=== PATIENT | male | born 1945 | race Caucasian/White ===

== ENCOUNTER 2020-01-25 18:58 | Emergency (ER) | payer OTHER, SELFPAY ==
[2020-01-25 19:03] VITALS: BP 157/85; PULSE 66; RESP 18; TEMP 36.8; O2SAT 94
--- NOTE | 2020-01-25 19:21 | W.ED.GENAD ---
Discharge Plan Disposition Patient Disposition: HOME Condition: Good Discharge Details Chief Complaint: Orthopedic Clinical Impression: Biceps tendonitis Primary Care Provider: [facility] ED Provider: Silvina Kulkarni Home Meds and New Rx's Prescriptions: Continued cyanocobalamin (vitamin B-12) [Vitamin B-12] 1,000 MCG tablet 1 tab PO DAILY RF: 0 aspirin [Aspir-Low] 81 MG tablet,delayed release (DR/EC) 81 mg PO DAILY RF: 0 citalopram 20 MG tablet 20 mg PO .QHS RF: 0 bupropion HCl [Wellbutrin] 75 MG tablet 75 mg PO BID RF: 0 hydrochlorothiazide 25 MG tablet 25 mg PO DAILY RF: 0 cholecalciferol (vitamin D3) 1,000 UNITS tablet 1 tab PO DAILY RF: 0 omeprazole 20 MG capsule,delayed release(DR/EC) 20 mg PO DAILY RF: 0 rosuvastatin [Crestor] 20 MG tablet 20 mg PO .QHS RF: 0 Fish Oil 500 MG capsule 1 cap PO DAILY RF: 0 prednisone 20 MG tablet 20 mg PO DAILY Qty: 5 RF: 0 tramadol 50 MG tablet 50 mg PO QID PRN (Reason: Pain) Qty: 20 RF: 0 trazodone 50 mg Tablet 100 mg PO QHS RF: 0 acetaminophen 500 mg Tablet 1,000 mg PO QID PRNRF: 0 naproxen sodium [Aleve] 220 MG capsule 220 mg PO PRNRF: 0 oxycodone-acetaminophen 1 TAB tablet 0 ea PO TID PRNQty: 12 RF: 0 Discharge Instructions Instructions: Tendinitis (ED) Additional Instructions: Encourage rest, ice, elevation. Tylenol and/or ibuprofen as needed for discomfort. Please continue with sling until cleared by orthopedics. Please take your arm out of the sling multiple times a day however to perform passive range of motion activities as discussed. Please call orthopedics Tuesday to schedule follow-up appointment, number listed below. If you develop fever/chills, increased pain or other new/worsening symptom please seek care urgently once again. Referrals: Dontrell Skaggs MD [ [facility] STAFF PHYSICIAN] - Discharge Data Discharge Date/Time-TO BE ENTERED AT DEPARTURE: 01/25/20 20:35 Medical Decision Making Patient is a pleasant [id number] 75-year-old male presenting today with chief complaint of right elbow pain. He reports that he began approximately 3 hours prior to arrival and was trying to lift a plow. States that while lifting he suddenly felt a pop and had sudden onset of pain and indicates the biceps tendon insertions area of maximal discomfort. He reports that since then, he has been having some discomfort that radiates down the forearm particularly with supination. He denies any numbness or tingling. He states he took Tylenol this morning for arthritis pain does not take anything for his discomfort as of yet. Denies any previous surgeries or injuries to this area. Denies other injury the time of the incident. On exam, patient is resting comfortably. He has full range of motion of the elbow but does have discomfort particularly with flexion. He has a normal hook test, no Zohaib deformity. Sensation is intact in his hand, he has 5-5 collision estimator strength and full range of motion of his wrist. He has no pain with pronation but has difficulty with supination secondary to discomfort. Pain does to be maximal over the bicep tendon insertion and with his history, I am concerned for potential partial rupture but this does not seem to be a complete rupture. FINDINGS: Bones/joints: No acute fracture or subluxation. Minor medial and lateral degenerative changes, distal humerus. Soft tissues: No significant joint effusion. A benign-appearing tiny triceps enthesophyte. IMPRESSION: No acute bony pathology Discussed this findings with the patient. Advised that again, I am concerned for partial rupture of the biceps tendon given his area of discomfort in his sensation of the pop. However, I do not see any evidence for full rupture, hook test is normal. He is neurovascularly intact. We will place him in a sling to help with discomfort. However, I did advise him on range of motion exercises that he should be performing at least 5-6 times daily. I did encourage rest, ice, elevation. Tylenol and/or ibuprofen as needed for discomfort. Advise follow-up with orthopedics. He will call on Tuesday to schedule follow-up appointment. All of his questions and concerns were addressed and he is in agreement this plan. HPI General Mode of arrival: ambulatory. Date/Time Provider Initiated Documentation: 01/25/20 19:18. Information obtained by: patient and RN notes reviewed. History of Present Illness 75 year old M presents to the emergency department with the chief complaint of right elbow pain, described as moderate, Quality is described as aching, and is localized to the right and upper extremity. Patient reports no radiation. Patient started experiencing this hour(s) and it has been constant. Immobilization improves symptom(s), Movement worsens symptoms . Patient notes no other symptoms.. Patient did receive the following treatments prior to arrival, none Related Data Home Medications Medication Instructions Recorded Confirmed Fish Oil 1 cap PO DAILY 12/19/14 01/25/20 aspirin [Aspir-Low] 81 mg PO DAILY 12/19/14 01/25/20 bupropion HCl [Wellbutrin] 75 mg PO BID 12/19/14 12/19/14 cholecalciferol (vitamin D3) 1 tab PO DAILY 12/19/14 01/25/20 citalopram 20 mg PO .QHS 12/19/14 01/25/20 cyanocobalamin (vitamin B-12) 1 tab PO DAILY 12/19/14 01/25/20 [Vitamin B-12] hydrochlorothiazide 25 mg PO DAILY 12/19/14 01/25/20 omeprazole 20 mg PO DAILY 12/19/14 01/25/20 prednisone 20 mg PO DAILY #5 tab 12/19/14 01/25/20 rosuvastatin [Crestor] 20 mg PO .QHS 12/19/14 01/25/20 tramadol 50 mg PO QID PRN #20 tab 12/19/14 01/25/20 naproxen sodium [Aleve] 220 mg PO PRN 07/07/16 oxycodone-acetaminophen 0 ea PO TID PRN #12 tab 07/07/16 acetaminophen 1,000 mg PO QID PRN 01/25/20 01/25/20 trazodone 100 mg PO QHS 01/25/20 01/25/20 Previous Rx's Medication Instructions Recorded prednisone 20 mg PO DAILY #5 tab 12/19/14 tramadol 50 mg PO QID PRN #20 tab 12/19/14 oxycodone-acetaminophen 0 ea PO TID PRN #12 tab 07/07/16 Allergies Allergy/AdvReac Type Severity Reaction Status Date / Time dust mites Allergy Intermediate Uncoded 07/07/16 09:29 General Stated Complaint: Orthopedic ALBIN: 3 Review of Systems Constitutional Constitutional: Reports as per HPI, Denies chills, Denies fever(s), Denies headache(s) and Denies weakness ENT Ears, Nose, Mouth, and Throat: Denies headache(s) Cardiovascular Cardiovascular: Reports as per HPI Respiratory Respiratory: Reports as per HPI and Denies cough Musculoskeletal Musculoskeletal: Reports as per HPI and Denies tingling Integumentary/Breasts Skin/Breast: Reports as per HPI, Denies rash and Denies wounds Neurologic Neurologic: Reports as per HPI, Denies headache(s), Denies tingling, Denies paresthesias and Denies weakness [facility] Social History Smoking/Tobacco Use Status: Former Tobacco Use Alcohol Intake: never Drug use: Never Substance use type: does not use Do you feel safe at home: Yes Do you feel safe in your relationship?: Yes Exam Const General: cooperative, healthy appearing, comfortable, no acute distress, well developed and well groomed Nutritional Appearance: well nourished and overweight Orientation: alert and awake Resp Effort & Inspection: normal respiratory effort, able to speak in complete sentences and no respiratory distress Cardio Rate: regular rate Rhythm: regular rhythm Skin General skin exam: no rashes or lesions noted Lesions: no lesions Rashes: no rashes Trauma: no lacerations or abrasions Neuro General: patient alert and patient awake Cognition: normal cognition Speech: speech normal Gait: normal gait Motor: muscle tone normal throughout Sensory Exam: no sensory deficits noted Extrem Right upper extremity: normal to inspection, full ROM, normal capillary refill, no joint enlargement, shoulder/upper arm Details: normal to inspection, axillary nerve sensory function normal and normal ROM; no tenderness and no swelling, elbow/forearm Details: normal to inspection, tenderness (distal biceps insertion, hook test intact), normal ROM and distal pulses intact; no swelling, no unusual warmth, no abrasions, no lacerations, no ecchymosis, no crepitus and no deformity, wrist Details: normal to inspection, normal ROM, normal vascular exam and radial pulse present; no tenderness and no swelling and hand Details: normal to inspection, normal capillary refill, vascular exam Details: radial pulse present and normal capillary refill and normal ROM of fingers; no tenderness, no unusual warmth and no swelling Psych Appearance: grossly normal and well kempt Mental Status: mental status grossly normal Speech and Movement: speech and movement normal Course Vital Signs Vital signs: Vital Signs Temperature 36.8 C 01/25/20 19:03 Pulse 66 01/25/20 19:03 Respiratory Rate 18 01/25/20 19:03 Blood Pressure 157/85 H 01/25/20 19:03 Pulse Oximetry 94 L 01/25/20 19:03 Temperature 36.8 C 01/25/20 19:03 Temperature Source Skin 01/25/20 19:03 Pulse 66 01/25/20 19:03 Respiratory Rate 18 01/25/20 19:03 Respiratory Effort Non-Labored 01/25/20 19:05 Blood Pressure 157/85 H 01/25/20 19:03 Blood Pressure Position Sitting 01/25/20 19:03 Pulse Oximetry 94 L 01/25/20 19:03 Oxygen Delivery Method Room Air 01/25/20 19:03 Oxygen Flow Rate 0 01/25/20 19:03 Pain Level 7 01/25/20 19:05
[2020-01-25] MEDS: Ibuprofen 600 MG TAB PO (19:34)
--- NOTE | 2020-01-25 19:47 | DI.RAD_ITS ---
EXAM: XR ELBOW RT COMPLETE CLINICAL HISTORY: pain over biceps tendon. TECHNIQUE: 2D digital imaging was performed. COMPARISON: No exams were available for comparison FINDINGS: BONES: No acute fracture is present. No bony destructive lesion is seen. JOINTS: The elbow is normally aligned. No joint effusion is seen. There are mild degenerative change s. SOFT TISSUE: Normal. IMPRESSION: Mild degenerative changes. No acute abnormality. DATA REPOSITORY: RADIATION DOSE DELIVERED:
--- NOTE | 2020-01-25 19:52 | DI.VRAD_ITS ---
PROCEDURE INFORMATION: Exam: XR Right Elbow Exam date and time: 01/25/2020 19:44 Age: 75 years old Clinical indication: Injury or trauma; Injury history: Lifting something heavy, felt a pop; Initial encounter; Sprain or strain; Elbow; Right; Injury date: 01/25/20 TECHNIQUE: Imaging protocol: XR Right elbow. Views: 3 or more views. COMPARISON: CR RIGHT ELBOW COMPLETE 07/07/2016 10:09 FINDINGS: Bones/joints: No acute fracture or subluxation. Minor medial and lateral degenerative changes, distal humerus. Soft tissues: No significant joint effusion. A benign-appearing tiny triceps enthesophyte. IMPRESSION: No acute bony pathology. Dictated and Authenticated by: Lucinda Gonzalez MD. Ordering:SARAHI Cool MD
[2020-01-25 20:37] VITALS: BP 145/72; PULSE 69; RESP 18; TEMP 36.4; O2SAT 96
== END 2020-01-25 20:35 | disposition home or self-care (01) ==
PROVIDERS: Emergency Provider Physician Assistant
DX: M75.21 Bicipital tendinitis, right shoulder (principal); X50.0XXA Overexertion from strenuous movement or load, initial encounter
CPT/HCPCS: 99283; 73080; L3650

== ENCOUNTER 2022-09-14 09:00 | Emergency (ER) | payer OTHER, SELFPAY ==
[2022-09-14 09:05] VITALS: BP 167/82; PULSE 85; RESP 18; O2SAT 95
[2022-09-14 09:07] VITALS: TEMP 37.1
--- NOTE | 2022-09-14 09:14 | ED.GENADUL_ITS ---
Discharge Plan Disposition Patient Disposition: Home Condition: Stable Discharge Details Clinical Impression: Corneal abrasion, left Primary Care Provider: Norma Servin ED Provider: Barb Patiño Home Meds and New Rx's Prescriptions: Continued cyanocobalamin (vitamin B-12) [Vitamin B-12] 1,000 MCG tablet 1 tab PO DAILY aspirin [Aspir-Low] 81 MG tablet,delayed release (DR/EC) 81 mg PO DAILY citalopram 20 MG tablet 20 mg PO .QHS bupropion HCl [Wellbutrin] 75 MG tablet 75 mg PO BID Patient Comments: not sure of dose. hydrochlorothiazide 25 MG tablet 25 mg PO DAILY cholecalciferol (vitamin D3) 1,000 UNITS tablet 1 tab PO DAILY omeprazole 20 MG capsule,delayed release(DR/EC) 20 mg PO DAILY rosuvastatin [Crestor] 20 MG tablet 20 mg PO .QHS Fish Oil 500 MG capsule 1 cap PO DAILY prednisone 20 MG tablet 20 mg PO DAILY Qty: 5 0RF tramadol 50 MG tablet 50 mg PO QID PRN (Reason: Pain) Qty: 20 0RF trazodone 50 mg Tablet 100 mg PO QHS acetaminophen 500 mg Tablet 1,000 mg PO QID PRN naproxen sodium [Aleve] 220 MG capsule 220 mg PO PRN oxycodone-acetaminophen 1 TAB tablet 0 ea PO TID PRNQty: 12 0RF Discharge Instructions Instructions: Corneal Abrasion (ED) Additional Instructions: You have a corneal abrasion on your left eye on exam today. This is a scratch on the clear front covering of your eye. You are being sent home with antibiotic drops to use as directed. Apply 2 drops to your left eye every 4 hours for 2 days then 2 drops every 6 hours for 5 days. You have been placed on care management's list for a follow-up appointment with [facility] eye care this week for reevaluation. You can also call [facility] eye care today or tomorrow to schedule or confirm this appointment. Return immediately to the emergency department if you develop any worsening or new concerning symptoms. Referrals: [facility] [Outside] Discharge Data Discharge Physician: Barb Patiño Medical Decision Making 77-year-old male with history of hypertension, hyperlipidemia, GERD, depression and PTSD presents for left eye injury after a plastic pipe he was holding at home slipped and hit his left eye yesterday. Patient appears nontoxic. Visual acuity 20/50 OD, 20/50 OS and 20/40 OU. His left eye has conjunctival injection. PERRLA. EOMI. Limited funduscopic exam without dilation but no obvious hemorrhage. Fluorescein staining of eye reveal 2 [id number] corneal abrasions, 1 to 2 mm in size at 4:00. No obvious foreign body noted with inspection including eyelid eversion. Patient given ofloxacin drops to go. He was placed on [facility] eye care list for follow-up in the next 1 to 2 weeks. Usual and customary return precautions given prior to discharge. HPI General Mode of arrival: ambulatory . Date/Time Provider Initiated Documentation: 09/14/22 09:01 . Limitations to Documentation: no limitations . Information obtained by: patient . HPI Narrative: Pt is a 77yo M with a history of hypertension, hyperlipidemia, GERD, depression and PTSD who presents for injury to his left eye yesterday now presents with irritation and blurry vision. Patient states he was working at home when the plastic pipe he was holding in his hand slipped and hit his left eye. He states he recently felt some discomfort but not initially blurry vision. He states since then he has had some irritation and blurry vision. He does not wear contacts. [facility] and his tetanus is up-to-date within the last 10 years. He denies any headaches or dizziness. He denies any known foreign body and states the plastic pipe still intact after injury. Related Data Home Medications Medication Instructions Recorded Confirmed aspirin 81 mg tablet,delayed 81 mg PO DAILY 12/19/14 01/25/20 release (Aspir-Low) bupropion HCl 75 mg tablet 75 mg PO BID 12/19/14 12/19/14 (Wellbutrin) cholecalciferol (vitamin D3) 25 1 tab PO DAILY 12/19/14 01/25/20 mcg (1,000 unit) tablet citalopram 20 mg tablet 20 mg PO .QHS 12/19/14 01/25/20 cyanocobalamin (vitamin B-12) 1 tab PO DAILY 12/19/14 01/25/20 1,000 mcg tablet (Vitamin B-12) hydrochlorothiazide 25 mg tablet 25 mg PO DAILY 07/09/15 08/14/20 omega-3 fatty acids 500 mg capsule 1 cap PO DAILY 12/19/14 01/25/20 (Fish Oil) omeprazole 20 mg capsule,delayed 20 mg PO DAILY 12/19/14 01/25/20 release prednisone 20 mg tablet 20 mg PO DAILY #5 tabs 12/19/14 01/25/20 rosuvastatin 20 mg tablet (Crestor) 20 mg PO .QHS 12/19/14 01/25/20 tramadol 50 mg tablet 50 mg PO QID PRN Pain #20 tabs 12/19/14 01/25/20 naproxen sodium 220 mg capsule 220 mg PO PRN 07/07/16 (Aleve) oxycodone-acetaminophen 5 mg-325 0 ea PO TID PRN #12 tabs 07/07/16 mg tablet acetaminophen 500 mg tablet 1,000 mg PO QID PRN 01/25/20 01/25/20 trazodone 50 mg tablet 100 mg PO QHS 01/25/20 01/25/20 Previous Rx's Medication Instructions Recorded prednisone 20 mg tablet 20 mg PO DAILY #5 tabs 12/19/14 tramadol 50 mg tablet 50 mg PO QID PRN Pain #20 tabs 12/19/14 oxycodone-acetaminophen 5 mg-325 0 ea PO TID PRN #12 tabs 07/07/16 mg tablet Allergies Allergy/AdvReac Type Severity Reaction Status Date / Time dust mites Allergy Intermediate Uncoded 07/07/16 09:29 General Stated Complaint: EyeProblem ALBIN: 4 Review of Systems All systems reviewed & are unremarkable except as noted in HPI and below Constitutional Constitutional: Reports as per HPI, Denies chills and Denies fever(s) Eyes Eyes: Reports blurry vision, Denies eye discharge, Reports irritation and Denies photophobia ENT Ears, Nose, Mouth, and Throat: Denies dizziness, Denies sore throat and Denies throat swelling Cardiovascular Cardiovascular: Denies chest pain and Denies dyspnea Respiratory Respiratory: Denies cough and Denies dyspnea Gastrointestinal Gastrointestinal: Denies abdominal pain, Denies diarrhea and Denies vomiting Genitourinary Genitourinary: Denies hematuria and Denies dysuria Musculoskeletal Musculoskeletal: Denies back pain and Denies numbness Integumentary/Breasts Skin/Breast: Denies lesions and Denies rash Neurologic Neurologic: Denies dizziness, Denies localized weakness and Denies numbness Allergic/Immunologic Allergic/Immunologic: Denies throat swelling PFSH All Active Problems (Updated 09/14/22 @ 10:27 by Barb Patiño DO) Corneal abrasion, left (Acute) Medical History (Updated 09/14/22 @ 10:27 by Barb Patiño DO) GERD (gastroesophageal reflux disease) HTN (hypertension) Hx of hyperlipidemia PTSD (post-traumatic stress disorder) Surgical History (Updated 09/14/22 @ 10:27 by Barb Patiño DO) History of tonsillectomy Social History Smoking/Tobacco Use Status: Former Tobacco Use Smoking risk assessment performed?: Yes Alcohol Intake: never Drug use: Never Substance use type: does not use Do you feel safe at home: Yes Do you feel safe in your relationship?: Yes Exam Const General: cooperative, healthy appearing and no acute distress Orientation: alert, awake and oriented x3 HENMT Head: normal to inspection Mouth: oral mucosae normal Eyes General: appearance normal, both eyes and all related structures Conjunctivae: conjunctival abnormality left conjunctival injection diffuse; without discharge Cornea: corneas abnormal on the left abrasion at the following clock position (4 o'clock); with no foreign body noted Pupils: PERRL EOM: EOM intact bilaterally Eyes/upper lids images: 1. Two side by side corneal abrasions at 4 'o'clock position, 1-2mm in size. Neck Neck: normal visual inspection Resp Effort & Inspection: normal respiratory effort and able to speak in complete sentences Cardio Rate: regular rate Skin General skin exam: no rashes or lesions noted Neuro General: patient alert, patient awake and patient oriented x3 Motor: muscle tone normal throughout Extrem General: normal to inspection and full ROM Psych Appearance: grossly normal Affect: normal affect Course Vital Signs Vital signs: Vital Signs Pulse 85 09/14/22 09:05 Respiratory Rate 18 09/14/22 09:05 Blood Pressure 167/82 H 09/14/22 09:05 Pulse Oximetry 95 09/14/22 09:05 Temperature 98.7 F 09/14/22 09:07 Temperature Source Oral 09/14/22 09:07 Pulse 85 09/14/22 09:05 Respiratory Rate 18 09/14/22 09:05 Respiratory Effort Normal, Non-Labored 09/14/22 09:06 Blood Pressure 167/82 H 09/14/22 09:05 Pulse Oximetry 95 09/14/22 09:05 Oxygen Delivery Method Room Air 09/14/22 09:05 Oxygen Flow Rate 0 09/14/22 09:05
[2022-09-14] MEDS: Fluorescein STRIPS 100/BOX 1 MG (09:54)
[2022-09-14] MEDS: Tetracaine 0.5% 4 ML BTL (09:54)
== END 2022-09-14 09:57 | disposition home or self-care (01) ==
PROVIDERS: Emergency Provider Physician Assistant; PCP Nurse Practitioner Family
DX: S05.02XA Injury of conjunctiva and corneal abrasion without foreign body, left eye, initial encounter (principal); I10 Essential (primary) hypertension; Z79.82 Long term (current) use of aspirin; W22.8XXA Striking against or struck by other objects, initial encounter; Y92.009 Unspecified place in unspecified non-institutional (private) residence as the place of occurrence of the external cause
CPT/HCPCS: 99283; 99284

== ENCOUNTER 2022-12-23 12:43 | Outpatient (CLI) | payer SELFPAY ==
--- NOTE | 2022-12-23 12:30 | RT.EKG_ITS ---
APPROVED REPORT Exam: Resting ECG Reason for Exam: Tingling in arms Patient Location: O HR:62 bpm ECG Measurements Heart Rate 62 AXIS MS 165 P 8 QRSd 95 QRS -27 QT 455 T -27 QTc 462 Conclusion Sinus rhythm...normal P axis, V-rate 50- 99 Borderline left axis deviation...QRS axis (-15,-29) Borderline T abnormalities, inferior leads...T flat/neg, II III aVF
== END 2022-12-23 12:44 | disposition home or self-care (01) ==
LOC: DI.CM 12:44
PROVIDERS: PCP Nurse Practitioner Family; Visit Provider Nurse Practitioner Family
DX: R07.89 Other chest pain (principal); R20.2 Paresthesia of skin
CPT/HCPCS: 93010

== ENCOUNTER 2022-12-23 14:43 | Outpatient (REF) | payer SELFPAY ==
[2022-12-23 20:49] LABS: HGB 17.2 g/dL (13.5-17.5); MCH 27.4 pg (27.0-33.0); MCHC 33.7 % (32.0-36.0); MCV 81 fL (80-95); MPV 9.6 fL (8.0-11.0); Platelet Count 213 10^3/uL (130-400); RBC 6.28 10^6/uL (4.36-5.78); RDW 14.1 % (11.8-14.1); RDW-SD 41.1 fL
[2022-12-23 21:00] LABS: Anion Gap 8.4 mmol/L (3-11); BUN 15 mg/dL (7-18); CO2 31.6 mmol/L (21.0-32.0); CREATININE 1.2 mg/dL (0.70-1.30); Calcium 8.9 mg/dL (8.5-10.1); Chloride 103 mmol/L (98-107); Estimated GFR 63.07 (mL/min/1.73m2); Glucose 81 mg/dL (74-106); Potassium 3.7 mmol/L (3.5-5.1); Sodium 143 mmol/L (136-145)
== END 2022-12-23 14:44 | disposition home or self-care (01) ==
LOC: LBN 14:43
PROVIDERS: PCP Nurse Practitioner Family; Visit Provider Nurse Practitioner Family
DX: R42 Dizziness and giddiness (principal); R29.6 Repeated falls; I10 Essential (primary) hypertension
CPT/HCPCS: 80048; 85027

== ENCOUNTER 2023-05-02 14:07 | Outpatient (CLI) | payer OTHER, SELFPAY ==
--- NOTE | 2023-05-02 13:15 | DI.RAD_ITS ---
Exam(s) XR KNEE LT 2V AP,LAT EXAM: XR KNEE LT 2V AP,LAT CLINICAL HISTORY: eval L knee pain, complement previous x-rays. TECHNIQUE: 2D digital imaging was performed. Three views. COMPARISON: CR RIGHT KNEE COMPLETE from 12/19/2014 CR KNEE 2 VIEWS (ROUTINE) from 11/24/2022 FINDINGS: BONES: No acute fracture is present. No bony destructive lesion is seen. Patellar Enthesophytes. JOINTS: Mild narrowing of the medial femoral tibial joint space. Mild periarticular spurring at the patellofemoral and femoral tibial joints. SOFT TISSUE: Normal. IMPRESSION: Mild degenerative changes. DATA REPOSITORY: RADIATION DOSE DELIVERED:
== END 2023-05-02 14:08 | disposition home or self-care (01) ==
LOC: DIORS 14:07
PROVIDERS: PCP Nurse Practitioner Family; Visit Provider Student in an Organized Health Care Education/Training Program
DX: M25.562 Pain in left knee (principal)
CPT/HCPCS: 73560

== ENCOUNTER 2024-03-07 16:08 | Outpatient (CLI) | payer OTHER, SELFPAY ==
--- NOTE | 2024-03-07 14:36 | DI.RAD_ITS ---
Exam(s) XR KNEE LT 4V AP,LAT,DARCIE,PAT EXAM: XR KNEE LT 4V AP,LAT,DARCIE,PAT CLINICAL HISTORY: L knee pain. TECHNIQUE: 2D digital imaging was performed. COMPARISON: CR KNEE 2 VIEWS (ROUTINE) from 11/21/2023 FINDINGS: Four views. No evidence of fracture but there is a significant size joint effusion signifying internal derangemen t. There is moderate-advanced narrowing of the medial compartment evident on the weight-bearing view. N o significant narrowing of the lateral compartment. No osteochondral defects evident. No marginal o steophytes. There is no significant narrowing of the patellofemoral compartment seen on the merchant 's view. IMPRESSION: Moderate-advanced degenerative narrowing of the medial compartment seen on the weight-bearing view. Joint effusion also noted. This may signify presence of an internal derangement in addition to the d egenerative changes. If clinically indicated can be further studied with MRI. DATA REPOSITORY: RADIATION DOSE DELIVERED:
== END 2024-03-07 16:09 | disposition home or self-care (01) ==
LOC: DIORS 16:08
PROVIDERS: PCP Nurse Practitioner Family; Visit Provider Physician Assistant
DX: M17.12 Unilateral primary osteoarthritis, left knee (principal)
CPT/HCPCS: 73564

== ENCOUNTER 2024-07-02 03:18 | Outpatient (CLI) | payer OTHER, SELFPAY ==
[2024-07-02 12:43] LABS: HCT 55.3 % (40.0-50.0); HGB 18.1 g/dL (13.5-17.5); MCH 26.9 pg (27.0-33.0); MCHC 32.7 % (32.0-36.0); MCV 82 fL (80-95); MPV 9.1 fL (8.0-11.0); Platelet Count 215 10^3/uL (130-400); RDW 14.6 % (11.8-14.1); RDW-SD 41.3 fL
[2024-07-02 12:49] LABS: Anion Gap 6.2 mmol/L (3-11); BUN 15 mg/dL (7-18); CO2 34.8 mmol/L (21.0-32.0); CREATININE 1.4 mg/dL (0.70-1.30); Calcium 9.2 mg/dL (8.5-10.1); Chloride 102 mmol/L (98-107); Estimated GFR 51.77 (mL/min/1.73m2); Glucose 92 mg/dL (74-106); Potassium 3.4 mmol/L (3.5-5.1); Sodium 143 mmol/L (136-145)
[2024-07-02 13:04] LABS: RBC 6.74 10^6/uL (4.36-5.78)
== END 2024-07-02 03:19 | disposition home or self-care (01) ==
LOC: LBO 03:18
PROVIDERS: PCP Nurse Practitioner Family; Visit Provider Student in an Organized Health Care Education/Training Program
DX: M17.12 Unilateral primary osteoarthritis, left knee (principal); Z01.818 Encounter for other preprocedural examination
CPT/HCPCS: 36415; 80048; 85027

== ENCOUNTER 2024-07-02 13:41 | Outpatient (CLI) | payer OTHER, SELFPAY ==
--- NOTE | 2024-07-02 11:15 | DI.RAD_ITS ---
Exam(s) XR KNEE LT 1V XR STANDING ALIGNMENT EXAM: XR STANDING ALIGNMENT CLINICAL HISTORY: PRE OP L TKA. TECHNIQUE: 2D digital imaging was performed. Standing AP views were performed from the pelvis throu gh the ankles. COMPARISON: CR KNEE 2 VIEWS (ROUTINE) from 11/21/2023 CR XR KNEE LT 4V AP,LAT,DARCIE,PAT from 03/07/2024 CR XR KNEE LT 1V from 07/02/2024 FINDINGS: BONES: No acute fracture is present. No bony destructive lesion is seen. Enchondroma proximal right tibia. Leg length discrepancy: No significant overall leg length discrepancy. JOINTS: Knees: Mild narrowing of the right medial femoral tibial joint space. No significant peria rticular spurring. [id number] narrowing of the left medial femoral tibial joint. Mild periart icular spurring. The ankle joints are unremarkable. The hip joints show mild bilateral joint space narrowing and mild acetabular spurring. SOFT TISSUE: Venous varicosities in the left medial soft tissues. IMPRESSION: Moderate degenerative changes the medial femoral tibial joint space of the left knee. Mild degenerat ember changes of the right knee. No significant leg length discrepancy. DATA REPOSITORY: RADIATION DOSE DELIVERED:
== END 2024-07-02 13:42 | disposition home or self-care (01) ==
LOC: DIORS 13:51
PROVIDERS: PCP Nurse Practitioner Family; Visit Provider Physician Assistant
DX: M17.12 Unilateral primary osteoarthritis, left knee (principal)
CPT/HCPCS: 73560; 77073

== ENCOUNTER 2024-07-17 06:04 | Day surgery (SDC) | payer OTHER, SELFPAY ==
[2024-07-17] VITALS (20 sets, daily range): BP systolic 114–153; BP diastolic 53–85; PULSE 62–76; RESP 13–19; TEMP 36.2–37.3; O2SAT 88–95; BMI 34.7
[2024-07-17] MEDS: Celecoxib 200 MG CAP 400 MG PO (06:48)
[2024-07-17] MEDS: Gabapentin 300 MG CAP PO (06:48)
[2024-07-17] MEDS: Acetaminophen 500 MG TAB 1000 MG PO (06:49)
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
[2024-07-17] MEDS: Lactated Ringers 1,000 ML 80 ML IV (07:10)
--- NOTE | 2024-07-17 07:10 | PDOC.DSDIS_ITS ---
Date of service: 07/17/24 Discharge Plan Disposition Patient Disposition: Home Condition: Good Discharge Details Reason For Visit: Left knee DJD Attending Provider: Jose Melo Primary Care Provider: Norma Servin Home Meds and New Rx's Prescriptions: New celecoxib [Celebrex] 200 mg capsule 200 mg PO BID PRNQty: 60 0RF Rx Instructions: Take one tablet twice daily for pain and inflammation aspirin 81 mg tablet,delayed release (DR/EC) 81 mg PO BID 30 Days Qty: 60 0RF acetaminophen 500 mg tablet 1,000 mg PO Q8H PRN Qty: 90 0RF Rx Instructions: Take two tablets up to every 8 hours as needed for pain pantoprazole 40 mg tablet,delayed release (DR/EC) 40 mg PO DAILY Qty: 14 0RF dexamethasone 4 mg tablet 4 mg PO DAILY Qty: 2 0RF Rx Instructions: Take one tablet once daily for two days docusate sodium [Colace] 100 mg capsule 100 mg PO BID Qty: 30 0RF gabapentin 300 mg capsule 300 mg PO QHS Qty: 14 0RF Rx Instructions: Take one tablet at bedtime oxycodone 5 mg tablet 5 mg PO Q4H PRNQty: 18 0RF Rx Instructions: Take one tablet up to every 4 hours as needed for severe postoperative pain Continued calcium carbonate-vitamin D3 500 mg-5 mcg (200 unit) tablet 1 tab PO DAILY carboxymethylcellulose sodium 0.5 % dropperette 1 drp ophthalmic (eye) QID desvenlafaxine 50 mg tablet extended release 24 hr 50 mg PO DAILY diclofenac sodium [Arthritis Pain (diclofenac)] 1 % gel 4 g topical QID Rx Instructions: apply to single knee, ankle, foot; for foot includes sole/toes/top of foot famotidine 20 mg tablet 20 mg PO BID potassium chloride 10 mEq capsule, extended release 10 meq PO BID rosuvastatin 40 mg tablet 40 mg PO HS sildenafil 100 mg tablet 100 mg PO DAILY PRN Rx Instructions: administer 30 minutes to 4 hours before activity tramadol 50 mg tablet 50 mg PO QHS PRN trazodone 50 mg tablet 100 mg PO QHS PRN cyanocobalamin (vitamin B-12) [Vitamin B-12] 1,000 MCG tablet 1 tab PO DAILY hydrochlorothiazide 25 MG tablet 25 mg PO DAILY Discontinued meloxicam 15 mg tablet 15 mg PO DAILY Qty: 30 1RF aspirin [Adult Aspirin Regimen] 81 mg tablet,delayed release (DR/EC) 81 mg PO DAILY acetaminophen 500 mg Tablet 1,000 mg PO QID PRN naproxen sodium [Aleve] 220 MG capsule 220 mg PO DIRECTED PRN Discharge Instructions Additional Instructions: Total Knee Discharge Instructions Activity: The most important activity is to walk and to work on gentle motion (both flexion and extension). You should try to take short walks a few times a day. It is important that when resting you work on keeping the knee straight. Avoid putting a pillow behind the knee as this will encourage flexion. Work on range of motion exercises as provided by Physical Therapy. - Start outpatient physical therapy within 2 weeks. - You should wear the FREDY hose on both legs for 2 weeks. You may remove these at night. You may also use any compression sock in place of the FREDY hose. - Utilize [employer] to review exercises, see videos on exercises and obtain basic information pertaining to your surgery and your recovery. Dressing: Remove the Frank wrap by 2 days after your surgery and put on the FREDY stocking given to you from the hospital. Keep the surgical dressing (underneath the FRANK wrap) in place for at least one week. After the first week it may be removed and replaced with light gauze and tape or nothing. The wound and dressing may get wet after 3 days but avoid soaking the dressing or otherwise it will need to be changed. Many people prefer covering the dressing with cling wrap (saran wrap) to minimize it from getting soaked. If it gets wet, just pat dry. If it starts to peel off then it will need to be changed. Medications: - You should take Tylenol and anti-inflammatory Celebrex as your primary pain control medications. If the Celebrex is too expensive or not covered, please call the office for another alternative (Advil/Ibuprofen or Naproxen/Aleve) - You have been prescribed a stronger pain medication Oxycodone for breakthrough pain, take as needed as prescribed. - You have also been prescribed a stomach acid reduction agent Pantoprozole to help reduce stomach acid and reflux. - You have been prescribed Gabapentin to take at night for restlessness and nerve pain. - You will be taking Aspirin 81mg twice a day for DVT prevention unless instructed otherwise. - You have also been prescribed Decadron to take to control post-operative nausea and pain. You will start this tomorrow. - If you have constipation you should take Colace (which has been prescribed) or Miralax (which is available [id number]). It takes most people 3-4 days to have a bowel movement. Follow-up: 2 weeks If you have any acute concerns or questions, please do not hesitate to contact the office at [phone]. You may contact Dr. Melo with any questions after hours through the hospital at [phone] or on his cell phone at [phone]. Referrals: Jose Melo MD [ [facility] STAFF PHYSICIAN] - Equipment/Supplies: Walker Activity:: Elevate Remove Dressings/Wound Care:: Do Not Remove Shower/Bathe:: Cover Diet:: As Tolerated Discharge Orders Discharge Orders: Discharge Order (Routine); Ordered 07/17/24 Ordered By: Leanna George
[2024-07-17] MEDS: ceFAZolin 2 GM/50 ML BAG IVPB (07:39)
[2024-07-17] MEDS: TRANEXAMIC ACID/SOD. CHL. 1,000 MG/100 ML BAG 600 MG IVPB (08:02)
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
--- NOTE | 2024-07-17 11:46 | W.ANESPOSTOP ---
Postoperative Evaluation Date, Time and Location Date Performed: 07/17/24 Time Performed: 11:46 Patient Location: Day Surgery Unit Vital Signs Most Recent Imported Vital Signs: Most Recent Vital Signs Temp Pulse Resp BP Pulse Ox 36.5 C 71 16 136/69 94 07/17/24 10:55 07/17/24 10:55 07/17/24 10:55 07/17/24 10:55 07/17/24 10:55 Pain Score Most Recent Pain Score: Most Recent Pain Score Pain Level 0 07/17/24 10:55 Assessment Mental Status: Awake (Alert & Oriented to Patient Baseline) Airway and Respiratory Function: Patent airway with normal (patient baseline) respiratory exam Cardiovascular Function: Hemodynamically Stable Hydration Status: Adequately Hydrated Nausea & Vomiting: No Nausea or Vomiting Pain: Pt. Denies Any Pain Peripheral Nerve Block: Regional nerve block not resolved at time of post operative discharge
--- NOTE | 2024-07-17 11:47 | W.ANESNERVE ---
Nerve Block Single Injection Procedure Date and Time Date Performed: 07/17/24 Procedure Start: 07:20 Location Where Procedure Performed Procedure Location: Day Surgery Unit Reason Performed: Postoperative Analgesia Requesting Provider: Jose Melo Timeout Performed Timeout Performed: Yes Monitoring Used ECG, Blood Pressure, SpO2 and See EMR for corresponding vital signs Sterility Sterility: Hand Hygiene, Surgical Cap, Surgical Mask, Sterile Gloves and Chlorhexidine Sedation Given During Procedure Sedation Given (Indicate Dose Given): No Sedation given Patient Mental Status Patient Mental Status: Awake Nerve Block 1st Nerve Block: Laterality: Left Block Type: Adductor Canal Ultrasound Image Saved?: Yes Needle / Catheter Used: 100mm SonoPlex II Local Anesthetic Bolus (Indicate Dose Given): Lidocaine used for local infiltration of skin, Injected in 3-5ml increments after negative blood aspiration, Bupivacaine 0.25% Dose:: 10ml and Exparel Dose:: 10ml Additives (Indicate Dose Given): None Ultrasound: Sterile probe cover and gel used Nerve Stimulator: Not Used Paresthesia: None Procedure Tolerated: No Complications and Patient tolerated well Procedure Outcome: Successful Performed By: Ernesto Haddad
--- NOTE | 2024-07-17 15:34 | ROE_ITS ---
Operative Note Operative Note PRE-OP DIAGNOSIS: Left Knee Osteoarthritis POST-OP DIAGNOSIS: same PROCEDURE: Left Total Knee Replacement SURGEON: Jose Melo FIELD REPORTER: Leanna George ANESTHESIA TYPE: Spinal Refer to Anesthesia Record ESTIMATED BLOOD LOSS: 50 PATHOLOGY: none sent TOURNIQUET TIME: 0 COMPLICATIONS: None Patient was transported to: PACU Patient's condition: stable Implants: 1. Depuy Attune Cementless Cruciate Retaining Femoral Component, Size 7 2. Depuy Attune Cementless Fixed Bearing Tibial Component, Size 7 3. Depuy Attune 7x5mm CR/FB Poly Indications: I have seen Keron in clinic for symptoms of knee arthritis, confirmed with radiographic findings. He has exhausted nonoperative methods and was having significant limitations in daily function and desired better function and less pain. I discussed the technical details of a knee replacement. I explained the risks of the procedure to include, but not limited to, bleeding, infection, pain, stiffness, fracture, damage to nerves and vessels, damage to muscles and tendons, loosening, need for repeat procedure, blood clot and cardiopulmonary demise. Despite these risks, Keron elected to proceed. Findings: There was significant signs of arthritis throughout the knee, mostly inovling th e trochlea and the medial compartment Procedure Description: Keron was greeted in the preoperative holding area where the correct side was identified and marked. The consent was reviewed with the patient and signed. The history and physical was updated. All questions were answered. Preoperative medications were administered: Acetaminophen 1000mg, Celebrex 400mg, and Gabapentin 300mg. An adductor canal block was then administered by the anesthesia team in the [facility]. Keron was taken back to the operating room. A spinal anesthestic was then a dministered. The patient was placed into the supine position on the operating room table. Posts were placed for positioning during the procedure. All bony prominences were well padded. Prophylactic antibiotics in the form of Cefazolin were administered. 1g of Tranxemic Acid was given intravenously within 30 minutes of incision. The left leg was then prepped with Chloraprep and draped in a standard fashion with impervious stockinette. A second prep with Chloraprep was performed prior to application of Iodine impregnated skin protection. A timeout to confirm correct identity, side and site, procedure, allergies, anesthesia, and medical concerns was performed. With the knee in some flexion, a midline incision was made overlying the knee. Full thickness skin flaps were raised once the extensor mechanism was encountered. These were raised medially and laterally. Any bleeding was controlled with electrocautery. Once the extensor mechanism was fully exposed, a medial parapatellar arthrotomy was performed in a flexed position. All bleeding from the arthrotomy and the geniculate arteries was coagulated. A medial subperiosteal peel was performed with electrocautery to the midcoronal plane. The fat pad was removed while keeping the patellar tendon protected. The anterior distal femur synovium was removed for later visualization. The ACL and PCL were resected and the anterior horn of the lateral meniscus was transected. The knee was then flexed with the patella everted. Using a step drill, and based on preoperative templating, the femoral canal was entered. This was done with a step drill without any difficulty. The intramedullary distal femoral cut guide was inserted, set to a 6 degree valgus cut and 9mm cut thickness. The distal femoral cut guide was then held in position and pinned. With the soft tissues protected, the distal cut was performed. This was passed over a few times to ensure a planar cut. I then turned attention to the tibia. The extramedullary guide was placed onto the leg. The distal aspect was slid medial to adjust for position of center of ankle and stay in line with shaft of the tibia. Approximately 3-5 degrees of posterior slope was kept in the proximal cutting guide. The center of the guide was aligned with the PCL. The stylus was used to assess cut thickness. The medial side, most involved side, was set for a 6mm cut. This was then held in position and pinned into place with 2 additional pins and a cross pin for stability. The medial and lateral collateral ligaments were protected and the cut was performed. With this completed, it was assessed and noted to be of appropriate dimensions. The guide was removed. A spacer block was inserted and the knee was brought into extension. The 5mm spacer block provided full extension, without hyperextension and with stability of both the medial and lateral collateral ligaments was assessed. The pins from the femur and the tibia were then removed. The distal femur was then sized. The anterior stylus was placed onto the lateral ridge of the anterior femur. This indicated a size 7 femur. The external rotation of the guide was adjusted to 3 degrees to match the epicondylar axis, perpendicular to Shane?s line. The 4-in-1 cutting guide was the placed. The posterior medial femur cut was evaluated and appeared of good thickness. The spacer block was inserted underneath the cutting guide and stability was confirmed in 90 degrees of flexion. An carlos a wing was used to confirm appropriate position of the anterior cut to avoid notching. This c utting guide was ensured to be flush on the cut surface and then pinned into place with headed pins. While protecting the soft tissues, quad tendon, and collateral ligaments, the anterior and posterior cuts were performed with a saw. The central two pins were removed and the posterior and anterior chamfers were cut next. The notch-cutting guide was placed. This was pinned to lateralize the femoral component as much as possible while keeping it flush on the cut surface. This was then pinned into position. A reciprocating saw was used to make the notch cut. A rasp smoothed the cut surfaces. The medial and lateral menisci were removed. A trial femoral component was then inserted, impacted down to the cut surfaces, and the lug holes were drilled. A provisional trial tibial component was placed and the knee was brought through range of motion. There was noted to be excellent extension and flexion. There was no significant instability. The patella was tracking without thumbs. A size 5mm polyethylene component provided the best range of motion and stability with less than 2mm gapping with medial and lateral stress and full extension without significant hyperextension. The tibial cut surface was fully exposed. The tibia was then sized as a 7. The tibia had been previously marked during trialing to correspond to the center of the tibial component to help with rotation. The trial was aligned to this josué, approximately rotated to the medial 1/3rd of the tibial tubercle. The trial was pinned into place. The tibia was prepared with a reamer and a keel punch and jovani g holes. The femoral lugs were drilled. The patella was inspected and not show any signs of arthritis and therefore was left unresurfaced. The trial components were removed. The final components were opened on the back table. The periosteal and capsular tissues, especially posteriorly, around the knee were then systematically injected with a periarticular cocktail consisting of 246mg of Ropivacaine, 0.5mg of Epinephrine, 0.08mg of Clonidine, and 30mg of Ketorolac, diluted to 100cc. On the back table, with the implants opened, the cement was mixed. One batch of high viscosity cement was prepared with vacuum assistance. After the cement was ready a small amount was placed on the cut surface of the patella and the patellar button was clamped into position and held. While the cement was hardening, the cementless knee components were placed. Starting with the tibial component, the tibia was subluxed anteriorly and the lug holes of the component were lined up. The tibia was then impacted with an impactor and mallet until the tibial component was in contact with the tibia. The final polyethylene component was inserted. Then, the femoral component was inserted. The lug hol es were aligned and the component was impacted into position. The knee was irrigated with Surgiphor Betadine solution. This was allowed to sit in the knee for 3 minutes and then it was irrigated out with saline. After the cement had finally cured, approximately 15min, the clamp was removed from the patella and the knee was taken through range of motion. The patella was tracking with a no-thumbs technique. The capsule was then reapproximated with a No. 1 Vicryl at multiple locations. The capsule was finally closed with a No. 2 Stratafix, barbed suture. The second dosing of 1g TXA was started. Deep tissues were then reapproximated with 0 Vicryl and 2-0 Vicryl. The skin was closed with a running 3-0 Monocryl in a subcuticular fashion. This was reinforced with skin glue. A Mepilex silver dressing was applied along with a [id number] MACARIO wrap. A CryoCuff was applied. Keron was transferred to the hospital bed without difficulty an suffering no apparent complication. Keron has a good prognosis. Physical therapy will start today and without restrictions, weight-bearing as tolerated. Aspirin 81mg BID will be used for DVT prophylaxis. Date of Procedure: 07/17/24
== END 2024-07-17 12:40 | disposition home or self-care (01) ==
PROVIDERS: PCP Nurse Practitioner Family; Visit Provider Student in an Organized Health Care Education/Training Program
PROC: (CPT 27447; principal; 2024-07-17 07:30)
DX: M17.12 Unilateral primary osteoarthritis, left knee (principal); G89.18 Other acute postprocedural pain; M25.562 Pain in left knee; E66.9 Obesity, unspecified; G47.33 Obstructive sleep apnea (adult) (pediatric); I10 Essential (primary) hypertension; E78.5 Hyperlipidemia, unspecified
CPT/HCPCS: 27447; 64447; 97162; 97530; C1776; J0665; J0666; J0690; J1100; J2401; J2405; J2704

== ENCOUNTER 2024-07-30 15:20 | Outpatient (CLI) | payer OTHER, SELFPAY ==
--- NOTE | 2024-07-30 11:15 | DI.RAD_ITS ---
Exam(s) XR KNEE LT 1V EXAM: XR KNEE LT 1V CLINICAL HISTORY: 1ST POST OP L TKA. TECHNIQUE: 2D digital imaging was performed. One images were obtained. Lateral views were obtained. COMPARISON: CR XR KNEE LT 1V from 07/02/2024 FINDINGS: This is a limited examination of the left knee with a single lateral view obtained. The patient is n ow status post left total knee replacement. On this lateral view the orthopedic hardware appears in good position. There enthesophytes seen at the patella. IMPRESSION: Limited examination. A single lateral view was obtained which shows interval placement of a left tot al knee arthroplasty. DATA REPOSITORY: RADIATION DOSE DELIVERED:
== END 2024-07-30 15:21 | disposition home or self-care (01) ==
LOC: DIORS 15:21
PROVIDERS: PCP Nurse Practitioner Family; Visit Provider Student in an Organized Health Care Education/Training Program
DX: Z96.652 Presence of left artificial knee joint (principal); Z47.1 Aftercare following joint replacement surgery
CPT/HCPCS: 73560